=== PATIENT | female | born 1965 | race Caucasian/White ===

== ENCOUNTER 2018-12-13 08:13 | Day surgery (SDC) | payer BC ==
[~2018-12-13] VITALS: Ht 160 cm; Wt 58.5 kg
[2018-12-13 08:59] VITALS: BP 97/61
== END 2018-12-13 19:02 | disposition home or self-care (01) ==
LOC: OUT 08:13
PROVIDERS: ATTEND Obstetrics & Gynecology
DX: N80.3 Endometriosis of pelvic peritoneum (principal); N80.0 Endometriosis of uterus; D25.9 Leiomyoma of uterus, unspecified; N87.9 Dysplasia of cervix uteri, unspecified; N88.8 Other specified noninflammatory disorders of cervix uteri; N83.01 Follicular cyst of right ovary; N83.8 Other noninflammatory disorders of ovary, fallopian tube and broad ligament; N83.312 Acquired atrophy of left ovary; N73.6 Female pelvic peritoneal adhesions (postinfective); G89.29 Other chronic pain; R10.2 Pelvic and perineal pain; Z79.899 Other long term (current) drug therapy; Z83.3 Family history of diabetes mellitus; Z80.49 Family history of malignant neoplasm of other genital organs; Z82.49 Family history of ischemic heart disease and other diseases of the circulatory system
CPT/HCPCS: 36415; 58552; 80053; 81003; 81025; 84702; 85025; 88307; J0690; J1100; J2250; J2370; J2405; J2704; J2710; J3010; J3490; J7120; J1885